=== PATIENT | female | born 1980 | race Two or more races ===

== ENCOUNTER 2017-08-30 13:41 | Emergency (ER) | payer BC, OTHER ==
[~2017-08-30] VITALS: Ht 154.9 cm; Wt 72.6 kg
--- NOTE | 2017-08-30 15:09 | NUR ---
Patient discharged to home in stable conditon. Written and verbal after care instructions given. Patient verbalizes understanding of instructions.
== END 2017-08-30 15:11 | disposition home or self-care (01) ==
LOC: ER 13:42
DX: H10.9 Unspecified conjunctivitis (principal)
CPT/HCPCS: A4663